=== PATIENT | female | born 1985 | race African-American/Black ===

== ENCOUNTER 2024-10-05 00:53 | Emergency (ER) | payer SELFPAY ==
[~2024-10-05] VITALS: Ht 165.1 cm; Wt 59.1 kg
[2024-10-05 00:55] VITALS: BP 141/100; PULSE 105; RESP 16; TEMP 98.2; O2SAT 99
== END 2024-10-05 04:00 | disposition left against medical advice (07) ==
LOC: EMS 00:55
DX: F41.9 Anxiety disorder, unspecified (principal); Z53.21 Procedure and treatment not carried out due to patient leaving prior to being seen by health care provider